=== PATIENT | male | born 1980 | race Caucasian/White ===

== ENCOUNTER 2016-08-29 19:12 | Emergency (ER) | payer BC ==
--- NOTE | 2016-08-29 19:52 | Emergency Department Record ---
History of Present Illness - General Chief complaint: Dental Stated complaint: TOOTH ABCESS Time Seen by Provider: 08/29/16 19:48 Source: Patient Mode of Arrival: Ambulatory Limitations: No limitations - History of Present Illness Initial comments: 36 yo male presents to ED with a CC of worsening welling to the right face after initiating Clindamycin yesterday for an upper dental infection. Patient reports low grade fever, but denies nausea, vomiting, or other systemic symptoms. Patient denies health problems at his baseline. MD complaint: Tooth pain Onset/Timin -: Hour(s) Location: Tooth # 1 - Dental tenderness on examination Severity: Mild Quality: Other Consistency: Other Improves with: Other Worsens with: Other Context-Epistaxis: Other Context- Dental: Other Context- Ear: Other Associated Symptoms: Other - Related Data Home Medications Medication Instructions Recorded Confirmed Last Taken Bupropion HCl [Bupropion Xl] 150 mg PO DAILY 08/29/16 08/29/16 Unknown Previous Rx's Medication Instructions Recorded Amoxicillin/Potassium Clav 1 tab PO BID #14 tab 08/29/16 [Augmentin 875-125 Tablet] Allergies Allergy/AdvReac Type Severity Reaction Status Date / Time No Known Drug Allergies Allergy Verified 08/29/16 19:26 Travel Screening - Travel/Exposure Within Last 30 Days Have you traveled within the last 30 days?: No - Travel/Exposure Within Last Year Have you traveled outside the [place] in the last year?: No - Additonal Travel Details Have you been exposed to anyone with a communicable illness?: No - Travel Symptoms Symptom Screening: None Review of Systems Constitutional: Reports: Fever. Denies: Chills, Malaise, Night sweats Eyes: Denies: Eye discharge, Eye pain ENT: Reports: Dental pain. Denies: Ear pain Respiratory: Denies: Cough, Dyspnea Cardiovascular: Denies: Chest pain, Dyspnea on exertion Endocrine: Denies: Fatigue, Heat or cold intolerance Gastrointestinal: Denies: Abdominal pain, Nausea, Vomiting Genitourinary: Denies: Incontinence, Retention Musculoskeletal: Denies: Arthralgia, Back pain Skin: Denies: Bruising, Change in color Neurological: Denies: Abnormal gait, Confusion, Headache, Seizure Psychiatric: Denies: Anxiety Hematological/Lymphatic: Denies: Anemia, Blood Clots Past Medical History - SOCIAL HISTORY Smoking Status: Never smoker Alcohol Use: None Drug Use: None - RESPIRATORY Hx Respiratory Disorders: No - CARDIOVASCULAR Hx Cardio Disorders: No - NEURO Hx Neuro Disorders: No - GI Hx GI Disorders: No - Hx Genitourinary Disorders: No - ENDOCRINE Hx Endocrine Disorders: No - MUSCULOSKELETAL Hx Musculoskeletal Disorders: No - PSYCH Hx Psych Problems: No - HEMATOLOGY/ONCOLOGY Hx Hematology/Oncology Disorders: No Family Medical History Any Significant Family History?: No Physical Exam - General General Appearance: Alert, Oriented x3, Cooperative, No acute distress Limitations: No limitations - Head Head exam: Atraumatic, Normal inspection Head exam detail: Other (STS to the right cheek extending up to the infra- orbital region). negative: Abrasion, Contusion, Pena's sign, General tenderness, Hematoma, Laceration - Eye Eye exam: Periorbital swelling. negative: Conjunctival injection, Periorbital tenderness, Scleral icterus - ENT Ear exam: negative: Auricular hematoma, Auricular trauma Nasal Exam: negative: Discharge, Dried blood, Foreign body Mouth exam: negative: Drooling, Laceration, Muffled voice, Tongue elevation Teeth exam: Dental tenderness #. negative: Dental caries, Gingival enlargement - Neck Neck exam: Normal inspection. negative: Meningismus, Tenderness - Respiratory Respiratory exam: Normal lung sounds bilaterally. negative: Respiratory distress, Rhonchi, Stridor, Wheezes - Cardiovascular Cardiovascular Exam: Regular rate, Normal rhythm, Normal heart sounds - GI/Abdominal GI/Abdominal exam: Soft. negative: Rebound, Rigid, Tenderness - Rectal Rectal exam: Deferred - exam: Deferred - Extremities Extremities exam: Normal inspection. negative: Calf tenderness, Pedal edema, Tenderness - Back Back exam: Reports: Normal inspection. Denies: CVA tenderness (R), CVA tenderness (L) - Neurological Neurological exam: Alert, Normal gait, Oriented X3 - Psychiatric Psychiatric exam: Normal affect, Normal mood - Skin Skin exam: Normal color. negative: Abrasion Type of lesion: negative: abrasion Course Vital Signs 08/29/16 19:24 Temperature 100.0 F H Pulse Rate [ 110 H Pulse Ox Probe] Respiratory 18 Rate Blood Pressure 128/94 [Left Arm] Pulse Ox 95 - Reevaluation(s) Reevaluation #1: 08/29/16 20:47 Antibiotics have finished infusing, and the patient appears stable for discharge at this time with a plan for reassessment tomorrow evening (24 hours) . Will add Augmentin to the Clindamycin as well for added antibiotic coverage. Patient appears stable for discharge at this time. Disposition Disposition: Discharge Clinical Impression: Dental abscess Disposition: Home, Self-Care Condition: (2) Stable Instructions: Dental Abscess (ED) Additional Instructions: Return to ED if your symptoms worsen or if you have any concerns. Augmentin in addition to Clindamycin for yoru dental infection. Recheck in ED in 12-24 hours to assess for swelling symptoms. Prescriptions: Amoxicillin/Potassium Clav [Augmentin 875-125 Tablet] 1 tab PO BID #14 tab Forms: Patient Portal Access Time of Disposition: 20:06
[2016-08-29] MEDS: AMPICILLIN SODIUM/SULBACTAM NA 3 G in 0.9 % SODIUM CHLORIDE 100ML 100 ML IVPB ONE (20:07)
[2016-08-29] MEDS: METHYLPREDNISOLONE PF 125MG/VIAL IVP ONE (20:07)
== END 2016-08-29 21:02 | disposition home or self-care (01) ==
LOC: ER 19:12
DX: K04.7 Periapical abscess without sinus (principal)
CPT/HCPCS: 99284 ×2; 96365; 96375; J0295; J2930

== ENCOUNTER 2016-08-30 18:39 | Emergency (ER) | payer BC ==
[2016-08-30] MEDS ORDERED: PREDNISONE 20 MG TAB PO ONE (19:03)
--- NOTE | 2016-08-30 19:05 | Emergency Department Record ---
History of Present Illness - General Chief Complaint: Recheck - Other Stated Complaint: RECHECK TOOTH Time Seen by Provider: 08/30/16 19:03 Source: Patient Mode of arrival: Ambulatory Limitations: No limitations - History of Present Illness Initial Comments: 36 yo male returns to ED for re-evaluation of a dental infection and right sided facial swelling. Patient was started on Unasyn in ED and Augmentin today , reports that his swelling symptoms have greatly improved. Patient denies fever today, and reports generalized improvement in his symptoms from 24 hours ago. MD Complaint: Wound re-check Onset/Timin -: Days(s) Initial Visit For: Other Returns Today for: Other Symptoms Since Prior Visit: No new symptoms, Improved Associated Symptoms: None Treatments Prior to Arrival: Given antibiotics on initial visit, Given pain medications on initial visit - Related Data Home Medications Medication Instructions Recorded Confirmed Last Taken Bupropion HCl [Bupropion Xl] 150 mg PO DAILY 08/29/16 08/30/16 Unknown Previous Rx's Medication Instructions Recorded Amoxicillin/Potassium Clav 1 tab PO BID #14 tab 08/29/16 [Augmentin 875-125 Tablet] Prednisone [Prednisone 20Mg] 20 mg PO BID #6 tab 08/30/16 Allergies Allergy/AdvReac Type Severity Reaction Status Date / Time No Known Drug Allergies Allergy Verified 08/29/16 19:26 Travel Screening - Travel/Exposure Within Last 30 Days Have you traveled within the last 30 days?: No Review of Systems Constitutional: Denies: Chills, Fever, Malaise, Night sweats Eyes: Denies: Eye discharge, Eye pain ENT: Reports: Dental pain, Other (facial swelling). Denies: Congestion, Ear pain Respiratory: Denies: Cough, Dyspnea Cardiovascular: Denies: Chest pain, Dyspnea on exertion Endocrine: Denies: Fatigue, Heat or cold intolerance Gastrointestinal: Denies: Abdominal pain, Nausea, Vomiting Genitourinary: Denies: Incontinence, Retention Musculoskeletal: Denies: Arthralgia, Back pain, Gout Skin: Denies: Bruising, Change in color Neurological: Denies: Abnormal gait, Confusion, Seizure Psychiatric: Denies: Anxiety Hematological/Lymphatic: Denies: Anemia, Blood Clots Past Medical History - SOCIAL HISTORY Smoking Status: Never smoker Alcohol Use: None Drug Use: None - RESPIRATORY Hx Respiratory Disorders: No - CARDIOVASCULAR Hx Cardio Disorders: No - NEURO Hx Neuro Disorders: No - GI Hx GI Disorders: No - Hx Genitourinary Disorders: No - ENDOCRINE Hx Endocrine Disorders: No - MUSCULOSKELETAL Hx Musculoskeletal Disorders: No - PSYCH Hx Psych Problems: No - HEMATOLOGY/ONCOLOGY Hx Hematology/Oncology Disorders: No Family Medical History Any Significant Family History?: No Physical Exam - General General Appearance: Alert, Oriented x3, Cooperative, No acute distress Limitations: No limitations - Head Head exam: Atraumatic, Normocephalic Head exam detail: General tenderness, Other (Generalized improvment in the patient's facial swelling compared with examination yesterday.). negative: Abrasion, Contusion, Pena's sign, Hematoma, Laceration - Eye Eye exam: Periorbital swelling (improved). negative: Conjunctival injection, Periorbital tenderness, Scleral icterus - ENT Ear exam: negative: Auricular hematoma, Auricular trauma Nasal Exam: negative: Active bleeding, Discharge, Dried blood, Foreign body Mouth exam: negative: Drooling, Laceration, Muffled voice, Tongue elevation Teeth exam: Dental tenderness # Throat exam: negative: Tonsillar erythema, Tonsillomegaly, Tonsillar exudate, R peritonsillar mass, L peritonsillar mass Image of Mouth/Teeth: 1 - Dental abscess present, no gingival STS present - Neck Neck exam: Normal inspection. negative: Meningismus, Tenderness - Respiratory Respiratory exam: Normal lung sounds bilaterally. negative: Respiratory distress, Rhonchi, Stridor, Wheezes - Cardiovascular Cardiovascular Exam: Regular rate, Normal rhythm, Normal heart sounds - GI/Abdominal GI/Abdominal exam: Soft. negative: Rebound, Rigid, Tenderness - Rectal Rectal exam: Deferred - exam: Deferred - Extremities Extremities exam: Normal inspection. negative: Tenderness - Back Back exam: Denies: CVA tenderness (R), CVA tenderness (L) - Neurological Neurological exam: Alert, Normal gait, Oriented X3 - Psychiatric Psychiatric exam: Normal affect, Normal mood - Skin Skin exam: Normal color. negative: Abrasion Type of lesion: negative: abrasion Course Vital Signs 08/30/16 18:48 Temperature 98.5 F Pulse Rate 92 H Respiratory 18 Rate Blood Pressure 161/86 Pulse Ox 94 L - Reevaluation(s) Reevaluation #1: 08/30/16 19:09 Patient's symptoms are greatly improved from previous visit 24 hours ago, IV antibiotics are not felt to be needed at this time. Will continue treatment with Clindamycin and Augmentin as well as Prednisone 40 mg for 3 more days. Patient appears stable for discharge at this time to follow-up with his dentist this week. Disposition Disposition: Discharge Clinical Impression: Dental abscess Disposition: Home, Self-Care Condition: (2) Stable Instructions: Dental Abscess (ED) Additional Instructions: Return to ED if your symptoms worsen or if you have any concerns. Prednisone as directed, continue Clindamycin and Augmentin as directed. Follow-up with your dentist in 1-3 days as directed. Prescriptions: Prednisone [Prednisone 20Mg] 20 mg PO BID #6 tab Forms: Patient Portal Access Time of Disposition: 19:05
== END 2016-08-30 19:16 | disposition home or self-care (01) ==
LOC: ER 18:39
DX: K04.7 Periapical abscess without sinus (principal)
CPT/HCPCS: 99282; J7512